=== PATIENT | female | born 1995 | race Caucasian/White ===

== ENCOUNTER 2016-07-03 22:39 | Emergency (ER) | payer SELFPAY ==
[2016-07-03 22:41] VITALS: BP_SYST 140; BP_SYST 40; BP_DIAS 89; PULSE 101; RESP 16; TEMP 97.9; O2SAT 100
== END 2016-07-04 04:00 | disposition left against medical advice (07) ==
LOC: NED 22:39
DX: N93.9 Abnormal uterine and vaginal bleeding, unspecified (principal); Z53.21 Procedure and treatment not carried out due to patient leaving prior to being seen by health care provider
CPT/HCPCS: 99281